=== PATIENT | female | born 1935 | race Caucasian/White ===

== ENCOUNTER 2017-01-13 08:44 | Emergency (ER) | payer MEDICARE, BC ==
[~2017-01-13] VITALS: Ht 147.3 cm; Wt 50.5 kg
[2017-01-13 08:48] VITALS: Ht 147.3 cm; Wt 50.5 kg
[2017-01-13] MEDS ORDERED: SOD CHLORIDE 0.9% 250 ML IV STA (12:24)
[2017-01-13] MEDS ORDERED: DIAZ5TAB4 PO (13:23)
[2017-01-13 14:00] LABS: ADD UMIC YES; URINE BILIRUBIN (Dip) NEGATIVE (NEGATIVE); URINE BLOOD (Dip) NEGATIVE (NEGATIVE); URINE COLOR LT. YELLOW (YELLOW); URINE GLUCOSE (Dip) NEGATIVE (NEGATIVE); URINE KETONES (Dip) NEGATIVE (NEGATIVE); URINE LEUKOCYTE ESTERASE (Dip) 1+ (NEGATIVE); URINE NITRITE (Dip) NEGATIVE (NEGATIVE); URINE TOTAL PROTEIN (Dip) NEGATIVE (NEGATIVE); URINE UROBILINOGEN (Dip) 0.2 E.U./dL (0.1-1.0)
[2017-01-13 14:04] LABS: ADD SCAN DIFF NO
[2017-01-13 14:07] LABS: BASOPHILS % 0.3 % (0.0-2.0); EOSINOPHILS # 0.3 10^3/ul (0.0-0.5); EOSINOPHILS % 3.1 % (0.0-7.0); HEMATOCRIT 39.3 % (37.0-47.0); HEMOGLOBIN 12.7 g/dl (12.0-16.0); LYMPHOCYTES # 1.7 10^3/ul (0.8-2.9); MEAN CORPUSCULAR HEMOGLOBIN 30.8 pg (29.0-33.0); MEAN CORPUSCULAR HGB CONC 32.3 g/dl (32.0-37.0); MEAN CORPUSCULAR VOLUME 95.2 fl (82.0-101.0); MEAN PLATELET VOLUME 10.6 fl (7.4-10.4); MONOCYTE # 0.6 10^3/ul (0.3-0.9); MONOCYTES % 7.1 % (0.0-11.0); NEUTROPHIL # 6.2 10^3/ul (1.6-7.5); NEUTROPHILS % 70.4 % (39.0-77.0); PLATELET COUNT 244 10^3/UL (140-415); RED BLOOD COUNT 4.13 10^6/ul (4.20-5.40); RED CELL DISTRIBUTION WIDTH 14.1 % (11.5-14.5); WHITE BLOOD COUNT 8.8 10^3/ul (4.8-10.8)
[2017-01-13 14:12] LABS: SQUAMOUS EPITHELIAL CELL,UR FEW; URINE RBCS 0-2 /HPF (0)
[2017-01-13 14:18] LABS: INR 0.97; PROTIME 12.9 Sec (12.2-14.2)
[2017-01-13 14:19] LABS: PARTIAL THROMBOPLASTIN TIME 27.6 Sec (25.0-35.0)
[2017-01-13 14:21] LABS: ALBUMIN 4.1 g/dl (3.3-4.9); ALBUMIN/GLOBULIN RATIO 1.2; BILIRUBIN,INDIRECT 0.3 mg/dl (0-1.1); BILIRUBIN,TOTAL 0.3 mg/dl (0.2-1.3); CALCIUM 9.1 mg/dl (8.4-10.2); CREATININE 0.81 mg/dl (0.44-1.00); POTASSIUM 4.2 mmol/L (3.5-5.1); TOTAL PROTEIN 7.5 g/dl (6.1-8.1)
--- NOTE | 2017-01-13 14:54 | ERD ---
ER Documentation Chief Complaint Date/Time DATE: 01/13/17 TIME: 14:41 Chief Complaint RIGHT INGUINAL PAIN - HX OF HERNIA HPI 81-year-old female with a history of a left inguinal hernia status post repair presenting to the ER with complaints of right groin discomfort. She has had this discomfort for about 3 months. It is worse when she walks, better with resting. She denies any associated numbness or tingling in her extremities. She has no associated nausea, vomiting, diarrhea, constipation, fevers, chills, hematuria, hematochezia, melena, or dysuria. She does not have a primary care doctor and would like a referral to a surgeon. ROS All systems reviewed and are negative except as per history of present illness. Medications Home Meds Reported Medications Diazepam* (Diazepam*) 5 Mg Tablet, 5 MG PO QHS Y for ANXIETY, TAB 01/13/17 Allergies Allergies: Coded Allergies: No Known Allergy (Unverified , 01/13/17) PMhx/Soc Medical and Surgical Hx: pt denies Medical Hx History of Surgery: Yes (Left inguinal hernia repair) Hx Alcohol Use: No Hx Substance Use: No Hx Tobacco Use: No Smoking Status: Never smoker FmHx Family History: No diabetes Physical Exam Vitals Vital Signs Date Time Temp Pulse Resp B/P Pulse Ox O2 Delivery O2 Flow Rate FiO2 01/13/17 08:48 97.8 60 17 150/66 97 Physical Exam Const: Well-appearing, no distress and oriented 3, cranial nerves intact, strength and sensations intact, normal gait Head: Atraumatic Eyes: Normal Conjunctiva ENT: Normal External Ears, Nose and Mouth. Neck: Full range of motion..~ No meningismus. Resp: Clear to auscultation bilaterally Cardio: Regular rate and rhythm, no murmurs Abd: Soft, non tender, non distended. Reducible right inguinal hernia without tenderness to palpation or overlying skin changes. Normal bowel sounds Skin: No petechiae or rashes Back: No midline or flank tenderness Ext: No cyanosis, or edema Neur: Awake and alert Psych: Normal Mood and Affect Result Diagram: 01/13/17 1350 Results 24 hrs Laboratory Tests Test 01/13/17 13:28 01/13/17 13:45 01/13/17 13:50 Urine Color LT. YELLOW Urine Clarity CLEAR Urine pH 5.0 Urine Specific [place] >=1.030 Urine Ketones NEGATIVE Urine Nitrite NEGATIVE Urine Bilirubin NEGATIVE Urine Urobilinogen 0.2 E.U./dL Urine Leukocyte Esterase 1+ Urine Microscopic RBC 0-2/HPF Urine Microscopic WBC 2-5/HPF Urine Squamous Epithelial Cells FEW Urine Calcium Oxalate Crystals MODERATE Urine Hemoglobin NEGATIVE Urine Glucose NEGATIVE% Urine Total Protein NEGATIVE Bedside Glucose 74mg/dL Prothrombin Time 12.9Sec Prothrombin Time Ratio 1.0 INR International Normalized Ratio 0.97 Activated Partial Thromboplast Time 27.6Sec Sodium Level 140mmol/L Potassium Level 4.2mmol/L Chloride Level 108mmol/L Carbon Dioxide Level 26mmol/L Anion Gap 10 Blood Urea Nitrogen 20mg/dl Creatinine 0.81mg/dl Glucose Level 89mg/dl Lactic Acid Level 0.7mmol/L Calcium Level 9.1mg/dl Total Bilirubin 0.3mg/dl Direct Bilirubin 0.00mg/dl Indirect Bilirubin 0.3mg/dl Aspartate Amino Transf (AST/SGOT) 24IU/L Alanine Aminotransferase (ALT/SGPT) 27IU/L Alkaline Phosphatase 104IU/L Total Protein 7.5g/dl Albumin 4.1g/dl Globulin 3.40g/dl Albumin/Globulin Ratio 1.20 Current Medications Medications (Trade) Dose Ordered Sig/Julisa Route PRN Reason Start Time Stop Time Status Last Admin Dose Admin Sodium Chloride (NS) 250 ml @ 250 mls/hr Q1H STAT IV 01/13/17 12:24 01/13/17 13:23 DC 01/13/17 12:24 Procedures/MDM Patient is presenting with complaints of right inguinal hernia discomfort. She has not been officially diagnosed with a hernia but on my exam, she does have a right inguinal hernia that is reducible without evidence of incarceration. Her abdominal exam is otherwise benign. I have a low suspicion for an acute surgical abdomen. Her CBC, CMP, and lactate were all within normal limits. Urinalysis did not show evidence of infection. I do not think the patient needs emergent surgery or admission to the hospital at this time. I explained to her and her son that she needs to see a primary care doctor for referral to a surgeon. I gave him a list of clinics that they could go to. They understand and are agreeable to the plan. Return precautions were given. Patient was discharged in a stable condition with a copy of her labs. Departure Diagnosis: Primary Impression: Reducible right inguinal hernia Condition: Stable FLORENTIN MILLER MD January 13, 2017 14:51
[2017-01-13 15:01] VITALS: BP 115/65; PULSE 65; RESP 19; TEMP 97.9
== END 2017-01-13 15:03 | disposition home or self-care (01) ==
LOC: E/R 08:44
DX: K40.90 Unilateral inguinal hernia, without obstruction or gangrene, not specified as recurrent (principal)
CPT/HCPCS: 80053; 81001; 82962; 83605; 85025; 85610; 85730; 87086; 99284; J7040; 81003